=== PATIENT | female | born 1990 | race Two or more races ===

== ENCOUNTER 2017-11-10 16:28 | Emergency (ER) | payer BC ==
[~2017-11-10] VITALS: Ht 154.9 cm; Wt 76.3 kg
[2017-11-10 19:20] VITALS: BP 133/79
== END 2017-11-10 19:20 | disposition home or self-care (01) ==
LOC: EME 16:28
DX: J06.9 Acute upper respiratory infection, unspecified (principal); J45.909 Unspecified asthma, uncomplicated
CPT/HCPCS: 71046; 99281; 99284

== ENCOUNTER 2018-01-26 03:06 | Emergency (ER) | payer BC ==
[~2018-01-26] VITALS: Ht 157.5 cm; Wt 77.5 kg
[2018-01-26] MEDS ORDERED: PREDNISONE20 MG PO (05:09)
[2018-01-26 05:46] VITALS: BP 121/71
== END 2018-01-26 05:46 | disposition home or self-care (01) ==
LOC: EME 03:06
DX: J45.901 Unspecified asthma with (acute) exacerbation (principal)
CPT/HCPCS: 94640; 99281; 99283; J7512